=== PATIENT | female | born 1950 | race Caucasian/White ===

== ENCOUNTER 2019-07-08 18:44 | Emergency (ER) | payer MEDICARE, MEDICAID ==
[2019-07-08] MEDS ORDERED: fentaNYL 100 MCG/2 ML SDV NASBOTH ONE (19:38)
--- NOTE | 2019-07-08 19:41 | EDM.PDOC ---
ED HPI GENERAL MEDICAL PROBLEM - General Chief Complaint: Lower Extremity Injury/Pain Stated Complaint: PAIN IN FEET,DIZZY Time Seen by Provider: 07/08/19 19:30 Source of Information: Reports: Patient, RN Notes Reviewed History Limitations: Reports: No Limitations - History of Present Illness INITIAL COMMENTS - FREE TEXT/NARRATIVE: 68-year-old female presents to the emergency department with a complaint of bilateral foot pain, she has a known history of peripheral neuropathy which she takes pre-gabapentin, Cymbalta and Percocet as needed, she states over the last couple of days the pain in her feet has increased to the point where the Percocet did not help her sleep last night. She does have an appointment with her primary care provider tomorrow but is seeking relief from the pain tonight. States the pain does get so severe at times she will become dizzy Bilateral Feet Pain Score (Numeric/FACES): 10 Bilateral Leg Pain Score (Numeric/FACES): 10 - Related Data Allergies Allergy/AdvReac Type Severity Reaction Status Date / Time acetaminophen Allergy Stomach Verified 07/08/19 19:03 [From Tylenol-Codeine #3] Ache codeine phosphate Allergy Stomach Verified 07/08/19 19:03 [From Tylenol-Codeine #3] Ache gabapentin Allergy Change Verified 07/08/19 19:03 Mental Status metoprolol Allergy Cannot Verified 07/08/19 19:03 Remember Penicillins Allergy Hives Verified 07/08/19 19:03 X-ray contrast Allergy Vomiting Uncoded 07/08/19 19:03 Home Meds: Home Meds Acetaminophen/oxyCODONE [Percocet 325-5 MG] 1 tab PO BID 07/08/19 [History] Albuterol [Ventolin HFA] 1 puff .XX Q6HR PRN 07/08/19 [History] Celecoxib 200 mg PO TID 07/08/19 [History] Cholecalciferol (Vitamin D3) [Vitamin D] 1,000 unit PO DAILY 07/08/19 [History] Cyanocobalamin (Vitamin B-12) [Cyanocobalamin Injection] 1,000 ml SQ ASDIRECTED 07/08/19 [History] DULoxetine [Cymbalta] 60 mg PO DAILY 07/08/19 [History] Empagliflozin [Jardiance] 10 mg PO DAILY 07/08/19 [History] Eszopiclone 3 mg PO BEDTIME 07/08/19 [History] Loratadine [Claritin] 10 mg PO DAILY PRN 07/08/19 [History] Magnesium Oxide [Magnesium] 500 mg PO BID 07/08/19 [History] Pravastatin [Pravachol] 40 mg PO DAILY 07/08/19 [History] Pregabalin [Lyrica] 150 mg PO BID 07/08/19 [History] Spironolactone [Aldactone] 25 mg PO DAILY 07/08/19 [History] Warfarin [Coumadin] 2.5 mg PO DAILY 07/08/19 [History] lisinopriL [Lisinopril] 20 mg PO DAILY 07/08/19 [History] tiZANidine [Zanaflex] 4 mg PO Q8H 07/08/19 [History] Past Medical History Cardiovascular History: Reports: Afib, Blood Clots/VTE/DVT, High Cholesterol, Hypertension Respiratory History: Reports: COPD, SOB [employer] History: Reports: Musculoskeletal History: Reports: Arthritis, Back Pain, Chronic, Fibromyalgia Neurological History: Reports: Neuropathy, Diabetic Endocrine/Metabolic History: Reports: Diabetes, Type II, Obesity/BMI 30+ Hematologic History: Reports: Anticoagulation Therapy Dermatologic History: Reports: Cellulitis - Past Surgical History Head Surgeries/Procedures: Reports: None HEENT Surgical History: Reports: Adenoidectomy, Tonsillectomy Cardiovascular Surgical History: Reports: None Respiratory Surgical History: Reports: None GI Surgical History: Reports: Appendectomy, Cholecystectomy Female Surgical History: Reports: Hysterectomy Endocrine Surgical History: Reports: None Neurological Surgical History: Reports: C-Spine, Lumbar Spine Other Neurological Surgeries/Procedures: rods in back Musculoskeletal Surgical History: Reports: Knee Replacement Dermatological Surgical History: Reports: None Social & Family History - Tobacco Use Smoking Status *Q: Former Smoker Used Tobacco, but Quit: Yes Month/Year Tobacco Last Used: 04/2019 Second Hand Smoke Exposure: Yes - Caffeine Use Caffeine Use: Reports: Soda - Recreational Drug Use Recreational Drug Use: No Review of Systems - Review of Systems Review Of Systems: See Below Constitutional: Reports: No Symptoms Respiratory: Reports: Shortness of Breath (Not beyond baseline) Cardiovascular: Reports: Lightheadedness (With increased pain) GI/Abdominal: Reports: No Symptoms Musculoskeletal: Reports: Foot Pain Neurological: Reports: Tingling ED EXAM, GENERAL - Physical Exam Exam: See Below Exam Limited By: No Limitations General Appearance: Alert, WD/WN, No Apparent Distress Respiratory/Chest: No Respiratory Distress Peripheral Pulses: 2+: Dorsalis Pedis (L), Dorsalis Pedis (R) Extremities: Normal Inspection, No Pedal Edema Course - Vital Signs Last Recorded V/S: Last Vital Signs Temp 96.9 F 07/08/19 19:06 Pulse 84 07/08/19 20:22 Resp 12 07/08/19 19:57 BP 123/60 07/08/19 20:22 Pulse Ox 96 07/08/19 20:22 - Orders/Labs/Meds Meds: Medications Discontinued Medications Generic Name Dose Route Start Last Admin Trade Name Arelis PRN Reason Stop Dose Admin Fentanyl 100 mcg 07/08/19 19:38 07/08/19 19:56 Sublimaze NASBOTH 07/08/19 19:39 100 mcg ONETIME ONE Administration Departure - Departure Time of Disposition: 20:36 Disposition: Home, Self-Care 01 Condition: Fair Clinical Impression: Peripheral neuropathic pain - Discharge Information Referrals: Danny Valadez MD [Primary Care Provider] - Forms: ED Department Discharge Additional Instructions: Please keep your follow-up appointment with your primary care tomorrow, call or return to the emergency department worsening of symptoms Sepsis Event Note - Evaluation Sepsis Screening Result: No Definite Risk - Focused Exam Vital Signs: Vital Signs Temp Pulse Resp BP Pulse Ox 07/08/19 20:22 84 123/60 96 07/08/19 19:57 84 12 122/62 98 07/08/19 19:06 96.9 F 100 18 114/65 96 07/08/19 19:05 96.9 F 100 18 114/65 96 Date Exam was Performed: 07/08/19 Time Exam was Performed: 20:35 - Assessment/Plan Plan: Assessment Acuity = acute Site and laterality = peripheral neuropathy 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
[2019-07-08 19:58] VITALS: PULSE 84
[2019-07-08 20:23] VITALS: BP 123/60
== END 2019-07-08 20:47 | disposition home or self-care (01) ==
LOC: JP.ED 18:44
DX: E11.42 Type 2 diabetes mellitus with diabetic polyneuropathy (principal); I10 Essential (primary) hypertension; E78.00 Pure hypercholesterolemia, unspecified; J44.9 Chronic obstructive pulmonary disease, unspecified; M19.90 Unspecified osteoarthritis, unspecified site; E66.9 Obesity, unspecified; Z68.41 Body mass index [BMI] 40.0-44.9, adult; Z86.718 Personal history of other venous thrombosis and embolism; Z87.891 Personal history of nicotine dependence; Z88.8 Allergy status to other drugs, medicaments and biological substances; Z88.5 Allergy status to narcotic agent; Z91.041 Radiographic dye allergy status; Z88.0 Allergy status to penicillin; Z79.899 Other long term (current) drug therapy; Z79.01 Long term (current) use of anticoagulants
CPT/HCPCS: 99283; J3010

== ENCOUNTER 2022-04-04 19:03 | Inpatient (IN) | payer MEDICAID, MEDICARE ==
[2022-04-04 20:11] LABS: ESTIMATED GFR 37 mL/min (>60)
[2022-04-04 20:18] LABS: CORONAVIRUS COVID-19 NAA NEGATIVE (NEGATIVE)
[2022-04-04] MEDS ORDERED: Sodium Chloride 0.9% 1,000 ML IV SCH ×2 (20:30→22:45)
[2022-04-04] MEDS ORDERED: Potassium Chloride 20 MEQ Tab.ER PO ONE (20:38)
[2022-04-04] MEDS ORDERED: HYDROmorphone 0.5 MG/0.5 ML Syringe IVPUSH ONE (21:59)
[2022-04-04] MEDS ORDERED: Potassium Chloride 20 MEQ in Premix Bag 1 BAG IV ONE (23:03)
[2022-04-04] MEDS ORDERED: Sodium Chloride 0.9% 10 ML Syringe FLUSH ONE (23:04)
[2022-04-04] MEDS ORDERED: Potassium Chloride 100 ML ONE ×2 (23:10→23:14)
[2022-04-04] MEDS ORDERED: Lidocaine 1% 5 ML VIAL ONE (23:14)
[2022-04-04] MEDS ORDERED: Lidocaine 1% 5 ML VIAL INJECT ONE (23:14)
[2022-04-04] MEDS ORDERED: Iopamidol 755 Mg/ML 100 ML Bottle IV SCH (23:15)
[2022-04-04] MEDS ORDERED: Sodium Chloride 0.9% 75 ML IV SCH (23:15)
[2022-04-05] MEDS ORDERED: Ondansetron 4 MG Tab.DIS PO PRN (01:19)
[2022-04-05] MEDS ORDERED: Magnesium Hydroxide 400 MG/5 ML Susp 30 ML Cup PO PRN (01:19)
[2022-04-05] MEDS ORDERED: Sodium Chloride 0.9% 1,000 ML IV SCH (01:19)
[2022-04-05] MEDS ORDERED: Ondansetron 4 MG/2 ML SDV IV PRN (01:19)
[2022-04-05] MEDS ORDERED: Albuterol 0.083% 2.5 MG/3 ML Neb Soln NEB PRN (01:19)
[2022-04-05] MEDS: cefTRIAXone 2 GM in Sodium Chloride 0.9% 50 ML IV SCH (04:00)
[2022-04-05] MEDS: oxyCODONE 5 MG Tab PO PRN ×4 (04:00→20:12)
[2022-04-05] MEDS: Albuterol/Ipratropium 3.0-0.5 MG/3 ML Neb Soln NEB SCH ×4 (07:41→20:13)
[2022-04-05] MEDS ORDERED: LORATADINE 10 MG PO PRN (09:00)
[2022-04-05] MEDS ORDERED: Potassium Chloride 20 MEQ Tab.ER PO ONE (09:00)
[2022-04-05] MEDS ORDERED: DILTIAZEM 180 MG PO SCH (09:00)
[2022-04-05] MEDS ORDERED: Tiotropium BR/Olodaterol HCL 4 GM Inhalation Spray 2.5mcg/1 dose; 10 doses INH SCH (09:00)
[2022-04-05] MEDS ORDERED: Cholecalciferol (Vitamin D3) 25 MCG **PTOM PO SCH (09:00)
[2022-04-05] MEDS ORDERED: DULoxetine 30 MG Cap PO SCH (09:00)
[2022-04-05] MEDS ORDERED: CELECOXIB 200 MG PO SCH (09:00)
[2022-04-05] MEDS ORDERED: DOCUSATE SODIUM 100 MG PO SCH (09:00)
[2022-04-05] MEDS ORDERED: Mirtazapine 15 MG **PTOM PO SCH (09:00)
[2022-04-05] MEDS ORDERED: Pravastatin 20 MG Tab PO SCH (09:00)
[2022-04-05] MEDS ORDERED: Bumetanide 1 MG Tab PO SCH (09:00)
[2022-04-05] MEDS ORDERED: DULOXETINE 60 MG PO SCH (13:00)
[2022-04-05] MEDS ORDERED: WARFARIN 2.5 MG PO SCH (13:00)
[2022-04-05] MEDS ORDERED: PRAVASTATIN 80 MG PO SCH (13:00)
[2022-04-05] MEDS ORDERED: BUMETANIDE 2 MG PO SCH (13:00)
[2022-04-05] MEDS ORDERED: Iopamidol 612 MG/ML 500 ML Multipack Bottle IV ONE (13:39)
[2022-04-05] MEDS ORDERED: Sodium Chloride 0.9% 50 ML IV SCH (13:45)
[2022-04-05] MEDS: HYDROmorphone 0.5 MG/0.5 ML Syringe IVPUSH PRN ×2 (13:56→21:36)
[2022-04-05] MEDS ORDERED: Cholecalciferol (Vitamin D3) 25 MCG Tab PO SCH (14:00)
[2022-04-05] MEDS ORDERED: Loratadine 10 MG Tab PO PRN (14:07)
[2022-04-05] MEDS: Pravastatin 20 MG Tab PO SCH (15:32)
[2022-04-05] MEDS: DULoxetine 30 MG Cap PO SCH (15:33)
[2022-04-05] MEDS: Diltiazem 180 MG Cap.CD PO SCH (15:33)
[2022-04-05] MEDS: Bumetanide 1 MG Tab PO SCH (15:33)
[2022-04-05] MEDS: Warfarin 2.5 MG Tab PO SCH (15:36)
[2022-04-05] MEDS ORDERED: Polyethylene Glycol 3350 Powder 17 GM Packet PO PRN (15:38)
[2022-04-05] MEDS: Liraglutide (rDNA Origin) 0.6 MG/0.1 ML 3 ML Pen SUBCUT SCH (15:44)
[2022-04-05] MEDS: Pregabalin 75 MG Cap PO SCH ×2 (15:55→20:15)
[2022-04-05] MEDS ORDERED: Polyethylene Glycol 3350 Powder 17 GM Packet PO ONE (16:00)
[2022-04-05] MEDS: Celecoxib 200 MG Cap PO SCH (20:13)
[2022-04-05] MEDS: Docusate Sodium 100 MG Cap PO SCH (20:13)
[2022-04-05] MEDS: Mirtazapine 15 MG Tab PO SCH (20:14)
[2022-04-05] MEDS: Insulin Lispro 100 Unit/ML 3 ML KwikPen SUBCUT SCH (21:40)
[2022-04-06] MEDS: oxyCODONE 5 MG Tab PO PRN ×2 (02:17→08:47)
[2022-04-06] MEDS: cefTRIAXone 2 GM in Sodium Chloride 0.9% 50 ML IV SCH (02:17)
[2022-04-06] MEDS: Albuterol/Ipratropium 3.0-0.5 MG/3 ML Neb Soln NEB SCH ×4 (07:05→20:48)
[2022-04-06] MEDS: Bumetanide 1 MG Tab PO SCH ×2 (08:31→15:11)
[2022-04-06] MEDS: metFORMIN 500 MG Tab PO SCH ×2 (08:31→17:43)
[2022-04-06] MEDS: Diltiazem 180 MG Cap.CD PO SCH (08:32)
[2022-04-06] MEDS: Celecoxib 200 MG Cap PO SCH ×2 (08:32→20:43)
[2022-04-06] MEDS: Empagliflozin 10 MG Tab PO SCH (08:33)
[2022-04-06] MEDS: Docusate Sodium 100 MG Cap PO SCH ×2 (08:33→20:43)
[2022-04-06] MEDS: DULoxetine 30 MG Cap PO SCH (08:33)
[2022-04-06] MEDS: Cholecalciferol (Vitamin D3) 25 MCG Tab PO SCH (08:34)
[2022-04-06] MEDS: Pravastatin 20 MG Tab PO SCH (08:34)
[2022-04-06] MEDS: Liraglutide (rDNA Origin) 0.6 MG/0.1 ML 3 ML Pen SUBCUT SCH (08:36)
[2022-04-06] MEDS: Pregabalin 75 MG Cap PO SCH ×2 (08:44→20:48)
[2022-04-06] MEDS ORDERED: Potassium Chloride 20 MEQ Tab.ER PO ONE (09:15)
[2022-04-06] MEDS ORDERED: Bisacodyl 10 MG Supp RECTAL ONE (11:00)
[2022-04-06] MEDS: Warfarin 2.5 MG Tab PO SCH (12:19)
[2022-04-06] MEDS: Insulin Lispro 100 Unit/ML 3 ML KwikPen SUBCUT SCH (12:20)
[2022-04-06] MEDS: Tiotropium BR/Olodaterol HCL 4 GM Inhalation Spray 2.5mcg/1 dose; 10 doses INH SCH (12:40)
[2022-04-06] MEDS ORDERED: Aluminum Hydroxide/Magnesium Hydroxide/Simethicone Susp 30 ML Cup PO PRN (15:10)
[2022-04-06] MEDS: Mirtazapine 15 MG Tab PO SCH (20:45)
[2022-04-06] MEDS: Melatonin 3 MG Tab PO PRN (20:48)
[2022-04-07] MEDS: cefTRIAXone 2 GM in Sodium Chloride 0.9% 50 ML IV SCH (02:42)
[2022-04-07] MEDS: Tiotropium BR/Olodaterol HCL 4 GM Inhalation Spray 2.5mcg/1 dose; 10 doses INH SCH (07:18)
[2022-04-07] MEDS: Albuterol/Ipratropium 3.0-0.5 MG/3 ML Neb Soln NEB SCH ×4 (07:18→21:02)
[2022-04-07] MEDS: metFORMIN 500 MG Tab PO SCH ×2 (08:18→17:18)
[2022-04-07] MEDS: Bumetanide 1 MG Tab PO SCH (08:18)
[2022-04-07] MEDS: Docusate Sodium 100 MG Cap PO SCH ×2 (08:19→21:01)
[2022-04-07] MEDS: Empagliflozin 10 MG Tab PO SCH (08:19)
[2022-04-07] MEDS: DULoxetine 30 MG Cap PO SCH (08:19)
[2022-04-07] MEDS: Celecoxib 200 MG Cap PO SCH ×2 (08:19→21:01)
[2022-04-07] MEDS: Pravastatin 20 MG Tab PO SCH (08:20)
[2022-04-07] MEDS: Diltiazem 180 MG Cap.CD PO SCH (08:20)
[2022-04-07] MEDS: Cholecalciferol (Vitamin D3) 25 MCG Tab PO SCH (08:21)
[2022-04-07] MEDS: Pregabalin 75 MG Cap PO SCH ×2 (08:23→21:01)
[2022-04-07] MEDS: Liraglutide (rDNA Origin) 0.6 MG/0.1 ML 3 ML Pen SUBCUT SCH (08:28)
[2022-04-07] MEDS ORDERED: Bumetanide 1 MG/4 ML MDV IVPUSH ONE (11:00)
[2022-04-07] MEDS ORDERED: Bumetanide 1 MG/4 ML MDV ONE (12:23)
[2022-04-07] MEDS: Azithromycin 250 MG Tab PO SCH (12:26)
[2022-04-07] MEDS ORDERED: WARFARIN 2.5 MG PO SCH (13:00)
[2022-04-07] MEDS ORDERED: Warfarin 2.5 MG Tab PO SCH (13:00)
[2022-04-07] MEDS: Mirtazapine 15 MG Tab PO SCH (21:01)
[2022-04-07] MEDS: Melatonin 3 MG Tab PO PRN (21:02)
[2022-04-07] MEDS: Cefdinir 300 MG Cap PO SCH (21:02)
[2022-04-07] MEDS ORDERED: Nystatin Topical Powder 15 GM Bottle TOP PRN (21:53)
[2022-04-08] MEDS: Albuterol/Ipratropium 3.0-0.5 MG/3 ML Neb Soln NEB SCH ×2 (07:35→11:16)
[2022-04-08] MEDS: Tiotropium BR/Olodaterol HCL 4 GM Inhalation Spray 2.5mcg/1 dose; 10 doses INH SCH (07:36)
[2022-04-08 08:12] VITALS: BP 119/65
[2022-04-08] MEDS: Diltiazem 180 MG Cap.CD PO SCH (08:25)
[2022-04-08] MEDS: metFORMIN 500 MG Tab PO SCH (08:25)
[2022-04-08] MEDS: Docusate Sodium 100 MG Cap PO SCH (08:26)
[2022-04-08] MEDS: Celecoxib 200 MG Cap PO SCH (08:26)
[2022-04-08] MEDS: Pravastatin 20 MG Tab PO SCH (08:27)
[2022-04-08] MEDS: Liraglutide (rDNA Origin) 0.6 MG/0.1 ML 3 ML Pen SUBCUT SCH (08:27)
[2022-04-08] MEDS: Cefdinir 300 MG Cap PO SCH (08:27)
[2022-04-08] MEDS: Empagliflozin 10 MG Tab PO SCH (08:28)
[2022-04-08] MEDS: Azithromycin 250 MG Tab PO SCH (08:29)
[2022-04-08] MEDS: DULoxetine 30 MG Cap PO SCH (08:29)
[2022-04-08] MEDS: Cholecalciferol (Vitamin D3) 25 MCG Tab PO SCH (08:29)
[2022-04-08] MEDS ORDERED: Potassium Chloride 20 MEQ Tab.ER PO ONE (08:45)
[2022-04-08] MEDS ORDERED: Bumetanide 1 MG/4 ML MDV IVPUSH ONE (08:45)
[2022-04-08] MEDS: Pregabalin 75 MG Cap PO SCH (09:27)
[2022-04-08 11:18] VITALS: PULSE 93
== END 2022-04-08 12:55 | disposition home health service (06) | DRG 291 ==
LOC: JP.ED 19:03 → JP.MS 04-05 00:46 → OBSVTOIN 04-05 12:32
PROVIDERS: ADMIT Internal Medicine; ATTEND Internal Medicine
DX: I11.0 Hypertensive heart disease with heart failure (principal); R07.81 Pleurodynia; I50.33 Acute on chronic diastolic (congestive) heart failure; D64.9 Anemia, unspecified; J96.01 Acute respiratory failure with hypoxia; J44.1 Chronic obstructive pulmonary disease with (acute) exacerbation; I10 Essential (primary) hypertension; N17.9 Acute kidney failure, unspecified; J44.0 Chronic obstructive pulmonary disease with (acute) lower respiratory infection; Z68.41 Body mass index [BMI] 40.0-44.9, adult; E11.40 Type 2 diabetes mellitus with diabetic neuropathy, unspecified; J20.9 Acute bronchitis, unspecified; I48.91 Unspecified atrial fibrillation; E78.00 Pure hypercholesterolemia, unspecified; M19.90 Unspecified osteoarthritis, unspecified site; G89.29 Other chronic pain; Z88.8 Allergy status to other drugs, medicaments and biological substances; M54.9 Dorsalgia, unspecified; Z79.84 Long term (current) use of oral hypoglycemic drugs; M79.7 Fibromyalgia; F41.9 Anxiety disorder, unspecified; R09.02 Hypoxemia; Z20.822 Contact with and (suspected) exposure to COVID-19; Z96.659 Presence of unspecified artificial knee joint; E87.6 Hypokalemia; G47.33 Obstructive sleep apnea (adult) (pediatric); E66.9 Obesity, unspecified; Z90.89 Acquired absence of other organs; Z90.49 Acquired absence of other specified parts of digestive tract; Z90.710 Acquired absence of both cervix and uterus; Z79.899 Other long term (current) drug therapy; Z79.01 Long term (current) use of anticoagulants; Z86.718 Personal history of other venous thrombosis and embolism; Z86.711 Personal history of pulmonary embolism; Z88.6 Allergy status to analgesic agent; Z88.5 Allergy status to narcotic agent; Z88.0 Allergy status to penicillin; Z91.041 Radiographic dye allergy status; Z87.891 Personal history of nicotine dependence
CPT/HCPCS: 0241U; 36415; 71045; 71275; 74177; 80048; 80053; 81001; 82947; 83690; 83735; 84484; 85018; 85025; 85027; 85379; 85610; 86140; 87086; 94640; 97110; 97116; 97162; 97165; 97530; 97535; 99222; 99232; 99239; A9270-GY; J0696; J1170; J1815; J3480; J3490; J7030; J7620; Q9967

== ENCOUNTER 2022-10-13 05:36 | Inpatient (IN) | payer OTHER, MEDICARE ==
[2022-10-13] MEDS ORDERED: Sodium Chloride 0.9% 10 ML Syringe FLUSH PRN ×2 (05:48→10:07)
[2022-10-13] MEDS ORDERED: Cefepime 2 GM in Sodium Chloride 0.9% 50 ML IV ONE (05:53)
[2022-10-13] MEDS ORDERED: Lactated Ringers 1,000 ML IV SCH (06:00)
[2022-10-13 06:12] LABS: HEMOGLOBIN 13.2 g/dL (11.2-15.5); MEAN CORPUSCULAR HEMOGLOBIN 28.9 pg (31.6-35.5); MEAN CORPUSCULAR VOLUME 87.7 fL (81.4-99.0); PLATELET COUNT,PLT 182 K/uL (130-375); RED BLOOD CELL COUNT 4.56 M/uL (3.77-5.24); WHITE BLOOD CELL COUNT,WBC 11.3 K/uL (3.2-11.0)
[2022-10-13 06:35] LABS: A/G RATIO 0.6 (1.2-2.2); ALANINE AMINOTRANSFERASE,ALT 35 U/L (12-78); ALKALINE PHOSPHATASE 159 U/L (46-116); ASPARTATE AMNIOTRANSFERASE,AST 37 U/L (15-37); BILIRUBIN TOTAL 0.7 mg/dL (0.2-1.0); BLOOD UREA NITROGEN,BUN 20 mg/dL (7-18); CALCIUM 9.1 mg/dL (8.5-10.1); CARBON DIOXIDE,CO2 31 mmol/L (21-32); CHLORIDE,CL 92 mmol/L (100-108); CREATININE 1.3 mg/dL (0.6-1.0); EST CRCL DRUG DOSING (CG) 33.78 mL/min; ESTIMATED GFR 44 mL/min (>60); GLUCOSE RANDOM 249 mg/dL (74-106); POTASSIUM,K 3.7 mmol/L (3.6-5.2); PROTEIN TOTAL,TP 7.7 g/dL (6.4-8.2); SODIUM,NA 131 mmol/L (140-148)
[2022-10-13 06:36] LABS: ANION GAP 11.7 mmol/L (5.0-14.0)
[2022-10-13 06:37] LABS: BAND ABSOLUTE MAN 0.34 K/uL; BAND PERCENT MAN 3 % (5-11); LYMPHOCYTES ABSOLUTE MAN 0.45 K/uL (0.8-3.3); LYMPHOCYTES PERCENT MAN 4 % (24-44); MONOCYTES ABSOLUTE MAN 0.34 K/uL (0.20-0.90); MONOCYTES PERCENT MAN 3 % (2-6); NEUTROPHILS ABSOLUTE MAN 10.17 K/uL (1.0-7.6); SEG NEUTROPHILS PERCENT MAN 90 % (36-66)
[2022-10-13 06:38] LABS: LACTIC ACID 2.9 mmol/L (0.4-2.0)
[2022-10-13 06:45] LABS: APPEARANCE,URINE SLIGHTLY CLOUDY (CLEAR); BILIRUBIN,URINE NEGATIVE (NEGATIVE); COLOR,URINE YELLOW (YELLOW); GLUCOSE,URINE 500 mg/dL (NEGATIVE); KETONES,URINE NEGATIVE (NEGATIVE); LEUKOCYTE ESTERASE,URINE TRACE (NEGATIVE); NITRITE,URINE NEGATIVE (NEGATIVE); OCCULT BLOOD,URINE MODERATE (NEGATIVE); PH,URINE 7.5 (5.0-8.0); PROTEIN,URINE 100 mg/dL (NEGATIVE); UROBILINOGEN,URINE 0.2 EU/dL (0.2-1.0)
[2022-10-13 06:52] LABS: AMORPHOUS SEDIMENT,URINE RARE; BACTERIA,URINE MANY; EPITHELIAL CELLS,URINE MANY; MUCUS,URINE MODERATE; WBC,URINE 20-30 (0-5)
[2022-10-13] MEDS ORDERED: Lactated Ringers 1,000 ML IV ONE (08:32)
[2022-10-13] MEDS ORDERED: Albuterol/Ipratropium 3.0-0.5 MG/3 ML Neb Soln INH PRN (10:07)
[2022-10-13] MEDS ORDERED: Enoxaparin 40 MG/0.4 ML Syringe SUBCUT SCH (10:07)
[2022-10-13] MEDS ORDERED: Vancomycin 1 GM SDV IV SCH (10:07)
[2022-10-13] MEDS ORDERED: Albuterol/Ipratropium 3.0-0.5 MG/3 ML Neb Soln NEB PRN (10:07)
[2022-10-13] MEDS ORDERED: Ondansetron 4 MG/2 ML SDV IV PRN (10:07)
[2022-10-13] MEDS ORDERED: Glucose Gel 15 GM in 37.5 GM Tube PO PRN (10:07)
[2022-10-13] MEDS ORDERED: 50% Dextrose in Water 50 ML Syringe IV PRN (10:07)
[2022-10-13] MEDS ORDERED: Albuterol 0.083% 2.5 MG/3 ML Neb Soln NEB PRN (10:07)
[2022-10-13] MEDS ORDERED: Loratadine 10 MG Tab PO PRN (10:17)
[2022-10-13 10:18] LABS: INR 1.8; PROTHROMBIN TIME 18.1 sec (9.2-10.6)
[2022-10-13] MEDS: Pregabalin 75 MG Cap PO SCH ×2 (11:38→21:25)
[2022-10-13] MEDS: Celecoxib 200 MG Cap PO SCH ×2 (11:38→21:23)
[2022-10-13] MEDS: amLODIPine 5 MG Tab PO SCH (11:39)
[2022-10-13] MEDS: Diltiazem 180 MG Cap.CD PO SCH (11:39)
[2022-10-13] MEDS: DULoxetine 30 MG Cap PO SCH (11:39)
[2022-10-13] MEDS: Docusate Sodium 100 MG Cap PO SCH ×2 (11:39→21:22)
[2022-10-13] MEDS: Pravastatin 20 MG Tab PO SCH (11:41)
[2022-10-13] MEDS: Empagliflozin 10 MG Tab PO SCH (11:41)
[2022-10-13] MEDS ORDERED: Gadoteridol 279.3 MG/ML 20 ML SDV IV SCH (11:45)
[2022-10-13] MEDS: Meropenem 1 GM in Sodium Chloride 0.9% 100 ML IV SCH ×2 (11:51→18:07)
[2022-10-13] MEDS: Liraglutide (rDNA Origin) 0.6 MG/0.1 ML 3 ML Pen SUBCUT SCH (11:54)
[2022-10-13] MEDS: Insulin Lispro 100 Unit/ML 3 ML KwikPen SUBCUT SCH ×3 (11:55→19:58)
[2022-10-13] MEDS: Triamcinolone Acetonide 0.1% Crm 15 GM Tube TOP SCH ×2 (12:00→21:23)
[2022-10-13] MEDS: Lactated Ringers 1,000 ML IV SCH ×2 (12:05→16:59)
[2022-10-13] MEDS: Acetaminophen 325 MG Tab PO PRN (13:55)
[2022-10-13] MEDS: Warfarin 2.5 MG Tab PO SCH (16:42)
[2022-10-13] MEDS: Mirtazapine 15 MG Tab PO SCH (21:23)
[2022-10-14] MEDS: Meropenem 1 GM in Sodium Chloride 0.9% 100 ML IV SCH ×3 (02:41→18:40)
[2022-10-14] MEDS: Lactated Ringers 1,000 ML IV SCH (02:42)
[2022-10-14 04:41] LABS: HEMOGLOBIN 11.6 g/dL (11.2-15.5); MEAN CORPUSCULAR HEMOGLOBIN 28.6 pg (31.6-35.5); MEAN CORPUSCULAR HGB CONC 31.4 g/dL (31.6-35.5); MEAN CORPUSCULAR VOLUME 91.1 fL (81.4-99.0); PLATELET COUNT,PLT 155 K/uL (130-375); RED BLOOD CELL COUNT 4.06 M/uL (3.77-5.24); WHITE BLOOD CELL COUNT,WBC 7.4 K/uL (3.2-11.0)
[2022-10-14 04:50] LABS: INR 1.9; PROTHROMBIN TIME 18.6 sec (9.2-10.6)
[2022-10-14 04:58] LABS: CALCIUM 9.1 mg/dL (8.5-10.1); EST CRCL DRUG DOSING (CG) 44.23 mL/min; MAGNESIUM 2.2 mg/dL (1.8-2.4); POTASSIUM,K 3.5 mmol/L (3.6-5.2)
[2022-10-14 05:19] LABS: ANION GAP 9.5 mmol/L (5.0-14.0)
[2022-10-14 05:20] LABS: BAND ABSOLUTE MAN 0.59 K/uL; BAND PERCENT MAN 8 % (5-11); LYMPHOCYTES ABSOLUTE MAN 1.11 K/uL (0.8-3.3); LYMPHOCYTES PERCENT MAN 15 % (24-44); MONOCYTES ABSOLUTE MAN 0.44 K/uL (0.20-0.90); MONOCYTES PERCENT MAN 6 % (2-6); NEUTROPHILS ABSOLUTE MAN 5.25 K/uL (1.0-7.6); SEG NEUTROPHILS PERCENT MAN 71 % (36-66)
[2022-10-14] MEDS ORDERED: Potassium Chloride 20 MEQ Tab.ER PO ONE ×2 (07:46→17:00)
[2022-10-14] MEDS: Insulin Lispro 100 Unit/ML 3 ML KwikPen SUBCUT SCH ×4 (08:02→20:42)
[2022-10-14] MEDS: Empagliflozin 10 MG Tab PO SCH (08:25)
[2022-10-14] MEDS: DULoxetine 30 MG Cap PO SCH (08:27)
[2022-10-14] MEDS: Diltiazem 180 MG Cap.CD PO SCH (08:27)
[2022-10-14] MEDS: Docusate Sodium 100 MG Cap PO SCH ×2 (08:28→20:44)
[2022-10-14] MEDS: Pravastatin 20 MG Tab PO SCH (08:28)
[2022-10-14] MEDS: amLODIPine 5 MG Tab PO SCH (08:29)
[2022-10-14] MEDS: Celecoxib 200 MG Cap PO SCH ×2 (08:29→20:44)
[2022-10-14] MEDS: Triamcinolone Acetonide 0.1% Crm 15 GM Tube TOP SCH ×2 (08:29→20:43)
[2022-10-14] MEDS: Liraglutide (rDNA Origin) 0.6 MG/0.1 ML 3 ML Pen SUBCUT SCH (08:30)
[2022-10-14] MEDS: Pregabalin 75 MG Cap PO SCH ×2 (08:32→20:45)
[2022-10-14] MEDS: Bacitracin Oint 28.35 GM Tube TOP SCH (11:44)
[2022-10-14] MEDS: metFORMIN 500 MG Tab PO SCH (16:39)
[2022-10-14] MEDS: Acetaminophen 325 MG Tab PO PRN ×2 (16:44→20:55)
[2022-10-14] MEDS: Warfarin 2.5 MG Tab PO SCH (16:47)
[2022-10-14] MEDS: Mirtazapine 15 MG Tab PO SCH (20:44)
[2022-10-15] MEDS: Meropenem 1 GM in Sodium Chloride 0.9% 100 ML IV SCH ×3 (04:21→19:56)
[2022-10-15 05:02] LABS: INR 2.1; PROTHROMBIN TIME 20.6 sec (9.2-10.6)
[2022-10-15] MEDS: Insulin Lispro 100 Unit/ML 3 ML KwikPen SUBCUT SCH ×4 (08:00→19:56)
[2022-10-15] MEDS: metFORMIN 500 MG Tab PO SCH ×2 (08:01→16:55)
[2022-10-15] MEDS: Bacitracin Oint 28.35 GM Tube TOP SCH (08:28)
[2022-10-15] MEDS: Pregabalin 75 MG Cap PO SCH ×2 (08:32→21:35)
[2022-10-15] MEDS: Bumetanide 1 MG Tab PO SCH ×2 (08:32→21:34)
[2022-10-15] MEDS: DULoxetine 30 MG Cap PO SCH (08:33)
[2022-10-15] MEDS: Celecoxib 200 MG Cap PO SCH ×2 (08:34→21:34)
[2022-10-15] MEDS: Docusate Sodium 100 MG Cap PO SCH ×2 (08:34→21:34)
[2022-10-15] MEDS: Diltiazem 180 MG Cap.CD PO SCH (08:35)
[2022-10-15] MEDS: Empagliflozin 10 MG Tab PO SCH (08:36)
[2022-10-15] MEDS: amLODIPine 5 MG Tab PO SCH (08:37)
[2022-10-15] MEDS: Pravastatin 20 MG Tab PO SCH (08:38)
[2022-10-15] MEDS: Triamcinolone Acetonide 0.1% Crm 15 GM Tube TOP SCH ×2 (08:41→21:37)
[2022-10-15] MEDS: Liraglutide (rDNA Origin) 0.6 MG/0.1 ML 3 ML Pen SUBCUT SCH (08:56)
[2022-10-15] MEDS: Acetaminophen 325 MG Tab PO PRN ×2 (09:00→20:17)
[2022-10-15] MEDS: oxyCODONE 5 MG Tab PO PRN ×2 (11:32→21:43)
[2022-10-15] MEDS: Warfarin 2.5 MG Tab PO SCH (16:55)
[2022-10-15] MEDS ORDERED: Morphine 2 MG/ML SYRINGE IVPUSH ONE ×2 (18:28→20:45)
[2022-10-15 18:46] LABS: HEMATOCRIT 35.2 % (34.3-46.0); MEAN CORPUSCULAR HEMOGLOBIN 28.3 pg (31.6-35.5); MEAN CORPUSCULAR HGB CONC 31.3 g/dL (31.6-35.5); MEAN CORPUSCULAR VOLUME 90.5 fL (81.4-99.0); RED BLOOD CELL COUNT 3.89 M/uL (3.77-5.24); WHITE BLOOD CELL COUNT,WBC 7.2 K/uL (3.2-11.0)
[2022-10-15 18:55] LABS: CALCIUM 9.3 mg/dL (8.5-10.1); EST CRCL DRUG DOSING (CG) 44.23 mL/min
[2022-10-15] MEDS ORDERED: Nitroglycerin 0.4 MG Tab.SL SL ONE (19:15)
[2022-10-15] MEDS ORDERED: Morphine 2 MG/ML SYRINGE IVPUSH STA (19:20)
[2022-10-15] MEDS ORDERED: Nitroglycerin 0.4 MG Tab.SL SL PRN (20:02)
[2022-10-15] MEDS ORDERED: LORazepam 0.5 MG Tab PO PRN (21:23)
[2022-10-15] MEDS: Isosorbide Mononitrate 30 MG Tab.ER PO SCH (21:33)
[2022-10-15] MEDS: Mirtazapine 15 MG Tab PO SCH (21:35)
[2022-10-16] MEDS: Meropenem 1 GM in Sodium Chloride 0.9% 100 ML IV SCH ×3 (03:50→18:11)
[2022-10-16 04:50] LABS: CALCIUM 8.9 mg/dL (8.5-10.1); EST CRCL DRUG DOSING (CG) 44.23 mL/min; POTASSIUM,K 3.8 mmol/L (3.6-5.2)
[2022-10-16 04:52] LABS: INR 2.2; PROTHROMBIN TIME 21.4 sec (9.2-10.6)
[2022-10-16 04:56] LABS: ANION GAP 10.8 mmol/L (5.0-14.0)
[2022-10-16] MEDS: oxyCODONE 5 MG Tab PO PRN ×3 (07:25→21:09)
[2022-10-16] MEDS: metFORMIN 500 MG Tab PO SCH ×2 (07:26→17:15)
[2022-10-16] MEDS: Insulin Lispro 100 Unit/ML 3 ML KwikPen SUBCUT SCH ×4 (07:31→21:04)
[2022-10-16] MEDS: Docusate Sodium 100 MG Cap PO SCH ×2 (10:34→21:06)
[2022-10-16] MEDS: Diltiazem 180 MG Cap.CD PO SCH (10:34)
[2022-10-16] MEDS: Bumetanide 1 MG Tab PO SCH ×2 (10:34→21:05)
[2022-10-16] MEDS: Celecoxib 200 MG Cap PO SCH ×2 (10:34→21:06)
[2022-10-16] MEDS: Bacitracin Oint 28.35 GM Tube TOP SCH (10:34)
[2022-10-16] MEDS: Empagliflozin 10 MG Tab PO SCH (10:35)
[2022-10-16] MEDS: Pravastatin 20 MG Tab PO SCH (10:35)
[2022-10-16] MEDS: DULoxetine 30 MG Cap PO SCH (10:35)
[2022-10-16] MEDS: Triamcinolone Acetonide 0.1% Crm 15 GM Tube TOP SCH ×2 (10:36→21:07)
[2022-10-16] MEDS: Liraglutide (rDNA Origin) 0.6 MG/0.1 ML 3 ML Pen SUBCUT SCH (10:36)
[2022-10-16] MEDS: Pregabalin 75 MG Cap PO SCH ×2 (10:39→21:09)
[2022-10-16] MEDS: Isosorbide Mononitrate 30 MG Tab.ER PO SCH (10:51)
[2022-10-16] MEDS: Warfarin 2.5 MG Tab PO SCH (17:15)
[2022-10-16] MEDS: Acetaminophen 325 MG Tab PO PRN (20:23)
[2022-10-16] MEDS: Mirtazapine 15 MG Tab PO SCH (21:07)
[2022-10-17] MEDS: Meropenem 1 GM in Sodium Chloride 0.9% 100 ML IV SCH ×2 (02:27→11:48)
[2022-10-17 05:16] LABS: HEMATOCRIT 34.5 % (34.3-46.0); HEMOGLOBIN 10.7 g/dL (11.2-15.5); MEAN CORPUSCULAR HEMOGLOBIN 28.4 pg (31.6-35.5); MEAN CORPUSCULAR VOLUME 91.5 fL (81.4-99.0); RED BLOOD CELL COUNT 3.77 M/uL (3.77-5.24); WHITE BLOOD CELL COUNT,WBC 5.3 K/uL (3.2-11.0)
[2022-10-17 05:37] LABS: INR 2.3; PROTHROMBIN TIME 22.1 sec (9.2-10.6)
[2022-10-17 05:38] LABS: C-REACTIVE PROTEIN 14.26 mg/dL (0.0-0.3); CALCIUM 8.5 mg/dL (8.5-10.1); CREATININE 0.8 mg/dL (0.6-1.0); EST CRCL DRUG DOSING (CG) 55.29 mL/min; POTASSIUM,K 3.2 mmol/L (3.6-5.2)
[2022-10-17 05:39] LABS: ANION GAP 12.2 mmol/L (5.0-14.0)
[2022-10-17] MEDS: Insulin Lispro 100 Unit/ML 3 ML KwikPen SUBCUT SCH ×4 (07:57→20:54)
[2022-10-17] MEDS: metFORMIN 500 MG Tab PO SCH ×2 (07:59→17:09)
[2022-10-17] MEDS: Docusate Sodium 100 MG Cap PO SCH ×2 (08:00→20:13)
[2022-10-17] MEDS: Bacitracin Oint 28.35 GM Tube TOP SCH (08:01)
[2022-10-17] MEDS: Triamcinolone Acetonide 0.1% Crm 15 GM Tube TOP SCH ×2 (08:02→20:13)
[2022-10-17] MEDS: Bumetanide 1 MG Tab PO SCH ×2 (08:08→20:12)
[2022-10-17] MEDS: DULoxetine 30 MG Cap PO SCH (08:09)
[2022-10-17] MEDS: Celecoxib 200 MG Cap PO SCH ×2 (08:13→20:13)
[2022-10-17] MEDS: Empagliflozin 10 MG Tab PO SCH (08:14)
[2022-10-17] MEDS: Pravastatin 20 MG Tab PO SCH (08:16)
[2022-10-17] MEDS: Pregabalin 75 MG Cap PO SCH ×2 (08:19→20:16)
[2022-10-17] MEDS: Potassium Chloride 20 MEQ Tab.ER PO SCH ×2 (08:22→17:09)
[2022-10-17] MEDS: Liraglutide (rDNA Origin) 0.6 MG/0.1 ML 3 ML Pen SUBCUT SCH (08:27)
[2022-10-17] MEDS: oxyCODONE 5 MG Tab PO PRN ×3 (10:22→20:11)
[2022-10-17] MEDS: Lactobacillus Rhamnosus GG (Probiotic) Cap PO SCH ×2 (11:59→20:13)
[2022-10-17] MEDS: Acetaminophen 325 MG Tab PO PRN (12:41)
[2022-10-17] MEDS: Warfarin 2.5 MG Tab PO SCH (17:10)
[2022-10-17] MEDS: cefTRIAXone 2 GM in Sodium Chloride 0.9% 50 ML IV SCH (17:31)
[2022-10-17] MEDS: Mirtazapine 15 MG Tab PO SCH (20:13)
[2022-10-18 06:32] LABS: CALCIUM 9.2 mg/dL (8.5-10.1); CREATININE 0.8 mg/dL (0.6-1.0); EST CRCL DRUG DOSING (CG) 55.29 mL/min; INR 2.5; POTASSIUM,K 3.9 mmol/L (3.6-5.2); PROTHROMBIN TIME 24.3 sec (9.2-10.6)
[2022-10-18 07:01] LABS: ANION GAP 10.9 mmol/L (5.0-14.0)
[2022-10-18] MEDS: Insulin Lispro 100 Unit/ML 3 ML KwikPen SUBCUT SCH ×4 (07:57→21:17)
[2022-10-18] MEDS: metFORMIN 500 MG Tab PO SCH ×2 (08:15→17:02)
[2022-10-18] MEDS: DULoxetine 30 MG Cap PO SCH (08:26)
[2022-10-18] MEDS: Lactobacillus Rhamnosus GG (Probiotic) Cap PO SCH ×2 (08:27→20:14)
[2022-10-18] MEDS: Docusate Sodium 100 MG Cap PO SCH ×2 (08:27→20:13)
[2022-10-18] MEDS: Empagliflozin 10 MG Tab PO SCH (08:28)
[2022-10-18] MEDS: Bumetanide 1 MG Tab PO SCH ×2 (08:28→20:13)
[2022-10-18] MEDS: Celecoxib 200 MG Cap PO SCH ×2 (08:29→20:14)
[2022-10-18] MEDS: Pravastatin 20 MG Tab PO SCH (08:30)
[2022-10-18] MEDS: Bacitracin Oint 28.35 GM Tube TOP SCH (08:31)
[2022-10-18] MEDS: Liraglutide (rDNA Origin) 0.6 MG/0.1 ML 3 ML Pen SUBCUT SCH (08:34)
[2022-10-18] MEDS: Triamcinolone Acetonide 0.1% Crm 15 GM Tube TOP SCH ×2 (08:36→20:14)
[2022-10-18] MEDS: Pregabalin 75 MG Cap PO SCH ×2 (08:41→20:15)
[2022-10-18] MEDS: oxyCODONE 5 MG Tab PO PRN ×3 (12:28→22:05)
[2022-10-18] MEDS: Warfarin 2.5 MG Tab PO SCH (17:02)
[2022-10-18] MEDS: cefTRIAXone 2 GM in Sodium Chloride 0.9% 50 ML IV SCH (17:02)
[2022-10-18] MEDS: Acetaminophen 325 MG Tab PO PRN (19:18)
[2022-10-18] MEDS: Mirtazapine 15 MG Tab PO SCH (20:14)
[2022-10-18] MEDS ORDERED: Acetaminophen/Caffeine 500-65 MG Tab PO PRN (21:00)
[2022-10-19 05:03] LABS: INR 2.3; PROTHROMBIN TIME 22.5 sec (9.2-10.6)
[2022-10-19 07:00] VITALS: BP 112/64; PULSE 103
[2022-10-19] MEDS: Insulin Lispro 100 Unit/ML 3 ML KwikPen SUBCUT SCH ×2 (07:41→11:25)
[2022-10-19] MEDS: oxyCODONE 5 MG Tab PO PRN (07:43)
[2022-10-19] MEDS: metFORMIN 500 MG Tab PO SCH (07:44)
[2022-10-19] MEDS: Triamcinolone Acetonide 0.1% Crm 15 GM Tube TOP SCH (08:22)
[2022-10-19] MEDS: Pregabalin 75 MG Cap PO SCH (08:23)
[2022-10-19] MEDS: Celecoxib 200 MG Cap PO SCH (08:23)
[2022-10-19] MEDS: Bumetanide 1 MG Tab PO SCH (08:23)
[2022-10-19] MEDS: DULoxetine 30 MG Cap PO SCH (08:23)
[2022-10-19] MEDS: Empagliflozin 10 MG Tab PO SCH (08:23)
[2022-10-19] MEDS: Pravastatin 20 MG Tab PO SCH (08:23)
[2022-10-19] MEDS: Docusate Sodium 100 MG Cap PO SCH (08:24)
[2022-10-19] MEDS: Diltiazem 180 MG Cap.CD PO SCH (08:24)
[2022-10-19] MEDS: Lactobacillus Rhamnosus GG (Probiotic) Cap PO SCH (08:24)
[2022-10-19] MEDS: Bacitracin Oint 28.35 GM Tube TOP SCH (08:24)
[2022-10-19] MEDS: Liraglutide (rDNA Origin) 0.6 MG/0.1 ML 3 ML Pen SUBCUT SCH (08:25)
== END 2022-10-19 11:25 | disposition home health service (06) | DRG 872 ==
LOC: JP.ED 05:36 → JP.ICU 08:39
PROVIDERS: ADMIT Hospitalist; ATTEND Internal Medicine
DX: A40.1 Sepsis due to streptococcus, group B (principal); I48.20 Chronic atrial fibrillation, unspecified; N30.00 Acute cystitis without hematuria; Z68.41 Body mass index [BMI] 40.0-44.9, adult; L03.116 Cellulitis of left lower limb; J44.9 Chronic obstructive pulmonary disease, unspecified; Z20.822 Contact with and (suspected) exposure to COVID-19; E66.01 Morbid (severe) obesity due to excess calories; E78.5 Hyperlipidemia, unspecified; Z96.659 Presence of unspecified artificial knee joint; I10 Essential (primary) hypertension; M79.7 Fibromyalgia; F41.9 Anxiety disorder, unspecified; E11.42 Type 2 diabetes mellitus with diabetic polyneuropathy; Z79.01 Long term (current) use of anticoagulants; Z79.4 Long term (current) use of insulin; Z79.899 Other long term (current) drug therapy; Z88.8 Allergy status to other drugs, medicaments and biological substances; Z88.5 Allergy status to narcotic agent; Z88.0 Allergy status to penicillin; Z91.041 Radiographic dye allergy status; Z79.52 Long term (current) use of systemic steroids; Z86.718 Personal history of other venous thrombosis and embolism; Z87.2 Personal history of diseases of the skin and subcutaneous tissue; Z90.89 Acquired absence of other organs; Z98.890 Other specified postprocedural states; Z90.49 Acquired absence of other specified parts of digestive tract; Z90.710 Acquired absence of both cervix and uterus; Z87.891 Personal history of nicotine dependence
CPT/HCPCS: 36415; 71045; 71045-26; 73610-26-LT; 73610-LT; 73718-26-LT; 73718-LT; 78315; 78315-26; 80048; 80053; 81001; 82947; 83605; 83735; 84132; 84484; 85025; 85027; 85610; 86140; 87040; 87077; 87086; 87088; 93005; 93010; 96361; 96365; 96366; 97110-GO; 97110-GP; 97162-GP; 97165-GO; 97530-GP; 99222; 99232; 99239; 99285; 99285-25; A9270-GY; J0692; J0696; J1815; J2185; J2270; J3370; J3490; J7050; J7120; U0002

== ENCOUNTER 2023-06-17 19:08 | Emergency (ER) | payer MEDICARE, MEDICAID ==
[2023-06-17 19:41] VITALS: BP 155/60; PULSE 86
[2023-06-17] MEDS ORDERED: cefTRIAXone 1 GM, Lidocaine 1% 2.1 ML IM ONE ×2 (20:07)
[2023-06-17 20:21] LABS: BASOPHILS ABSOLUTE AUTO 0.05 K/uL (0.00-0.10); BASOPHILS PERCENT AUTO 0.8 % (0.1-1.3); EOSINOPHILS ABSOLUTE AUTO 0.11 K/uL (0.00-0.40); EOSINOPHILS PERCENT AUTO 1.9 % (0.0-5.4); HEMATOCRIT 42.6 % (34.3-46.0); HEMOGLOBIN 14.2 g/dL (11.2-15.5); IMMATURE GRAN ABSOLUTE AUTO 0.06 K/uL (0.00-0.23); LYMPHOCYTES ABSOLUTE AUTO 2.01 K/uL (0.8-3.3); LYMPHOCYTES PERCENT AUTO 33.9 % (11.4-47.7); MEAN CORPUSCULAR HEMOGLOBIN 30.1 pg (31.6-35.5); MEAN CORPUSCULAR HGB CONC 33.3 g/dL (31.6-35.5); MEAN CORPUSCULAR VOLUME 90.4 fL (81.4-99.0); MONOCYTES ABSOLUTE AUTO 0.51 K/uL (0.20-0.90); MONOCYTES PERCENT AUTO 8.6 % (3.3-12.6); NEUTROPHILS ABSOLUTE AUTO 3.19 K/uL (1.0-7.6); NEUTROPHILS PERCENT AUTO 53.8 % (40.0-78.1); PLATELET COUNT,PLT 224 K/uL (130-375); RED BLOOD CELL COUNT 4.71 M/uL (3.77-5.24); WHITE BLOOD CELL COUNT,WBC 5.9 K/uL (3.2-11.0)
[2023-06-17 20:40] LABS: CALCIUM 9.6 mg/dL (8.5-10.1); CREATININE 1.1 mg/dL (0.6-1.0); EST CRCL DRUG DOSING (CG) 39.92 mL/min; POTASSIUM,K 3.9 mmol/L (3.6-5.2)
[2023-06-17 20:41] LABS: ANION GAP 15.9 mmol/L (5.0-14.0)
== END 2023-06-17 22:17 | disposition home or self-care (01) ==
LOC: JP.ED 19:08
DX: E11.621 Type 2 diabetes mellitus with foot ulcer (principal); L97.529 Non-pressure chronic ulcer of other part of left foot with unspecified severity; L03.116 Cellulitis of left lower limb; I10 Essential (primary) hypertension; E78.00 Pure hypercholesterolemia, unspecified; J44.9 Chronic obstructive pulmonary disease, unspecified; E66.9 Obesity, unspecified; I48.91 Unspecified atrial fibrillation; Z79.01 Long term (current) use of anticoagulants; Z79.84 Long term (current) use of oral hypoglycemic drugs; Z79.899 Other long term (current) drug therapy; Z91.041 Radiographic dye allergy status; Z88.6 Allergy status to analgesic agent; Z88.0 Allergy status to penicillin; Z68.41 Body mass index [BMI] 40.0-44.9, adult
CPT/HCPCS: 36415; 80048; 83605; 84145; 85025; 86140; 96372; 99283; J0696